=== PATIENT | male | born 1975 | race Caucasian/White ===

== ENCOUNTER 2024-03-04 07:12 | Day surgery (SDC) | payer BC ==
[~2024-03-04] VITALS: Ht 180.3 cm; Wt 122.7 kg
[~2024-03-04 07:12] MED LIST: GABA-282 PO; PANT40TA29 PO; PRAM0.754 PO
[2024-03-04] MEDS: NS 1,000 ML IV ONE (07:28)
[2024-03-04] MEDS ORDERED: propofoL 500 MG/50 ML VIAL As Ordered ONE (08:02)
[2024-03-04 08:44] VITALS: BP 135/85; TEMP 97.9; O2SAT 95
== END 2024-03-04 08:44 | disposition home or self-care (01) ==
LOC: M OPP 07:12
PROVIDERS: ATTEND Internal Medicine Gastroenterology
DX: K31.89 Other diseases of stomach and duodenum (principal); K22.89 Other specified disease of esophagus; K29.80 Duodenitis without bleeding; K31.7 Polyp of stomach and duodenum; R10.13 Epigastric pain; G47.30 Sleep apnea, unspecified; Z99.89 Dependence on other enabling machines and devices; Z79.899 Other long term (current) drug therapy